=== PATIENT | male | born 1955 | race Caucasian/White ===

== ENCOUNTER → 2022-10-29 08:54 | Outpatient (CLI) | payer OTHER, SELFPAY ==
--- NOTE | ~2022-10-29 | MR_ITS ---
MRI of the lumbar spine Clinical History: Radiculopathy Technique: Axial T2-weighted images, and sagittal T1-weighted, T2-weighted, and T2 fat-sat images wer e acquired. Findings: There is no fracture or subluxation of lumbar spine. Vertebral bodies maintain normal heigh t and alignment. No bone marrow signal abnormality seen. At L1-L2, there is central disc extrusion, which in conjunction with moderate facet arthropathy, resu lts in minimal central canal stenosis. There is moderate bilateral neural foraminal narrowing. At L2-L3, there is diffuse disc bulge with moderate facet arthropathy. There is minimal central canal stenosis. There is moderate bilateral neural foraminal narrowing. At L3-L4, there is diffuse disc bulge with advanced facet arthropathy, resulting in severe spinal can al stenosis/thecal sac compression. There is severe left neural foraminal narrowing and moderate righ t neural foraminal narrowing. At L4-L5, there is diffuse disc bulge with facet arthropathy, which result in severe spinal canal jeovanny nosis/thecal sac compression. There is moderate to advanced bilateral neural foraminal narrowing. At L5-S1, disc bulge and facet arthropathy are present. No sangeetha central canal stenosis. There is sev ere right neural foraminal narrowing and moderate to advanced left neural foraminal narrowing. Paravertebral soft tissues are unremarkable. Impression: Advanced degenerative spondylosis, as detailed above. There is severe spinal canal stenosis/thecal sa c compression L3-L4 and L4-L5, with multilevel neural foraminal narrowing. Reviewed, dictated and finalized at [facility]. Impression: Advanced degenerative spondylosis, as detailed above. There is severe spinal ca nal stenosis/thecal sac compression L3-L4 and L4-L5, with multilevel neural for aminal narrowing.
== END ==
PROVIDERS: PCP Physical Medicine & Rehabilitation Pain Medicine; Visit Provider Physical Medicine & Rehabilitation Pain Medicine
DX: M47.26 Other spondylosis with radiculopathy, lumbar region (principal)
CPT/HCPCS: 72148

== ENCOUNTER 2024-07-25 14:43 | Outpatient (CLI) | payer MEDICARE, OTHER, SELFPAY | END 2024-07-25 14:44 | disposition home or self-care (01) | PROVIDERS: PCP Physician Assistant Medical; Visit Provider Physician Assistant Medical | DX: G62.9 Polyneuropathy, unspecified (principal); R26.9 Unspecified abnormalities of gait and mobility; M47.896 Other spondylosis, lumbar region | CPT/HCPCS: 72148 ==

== ENCOUNTER 2024-08-09 09:58 | Outpatient (CLI) | payer MEDICARE, OTHER, SELFPAY ==
--- NOTE | 2024-08-09 11:00 | NEURO_ITS ---
Impression: # Complains of pain in legs. Known diabetic with history of scoliosis. ? # Neuropathy of axonal type, left more than right. ? # Needle/EMG exam with neurogenic changes. ? # Clinical correlation recommended. Nerve Conduction Studies Anti Sensory Summary Table ?Stim Site NR Peak (ms) P-T Amp (?V) Site1 Site2 Delta-P (ms) Dist (cm) Vinay (m/s) Left Sup Fibular Anti Sensory (Ant Lat Mall)??? NO RESPONSE 14 cm NR 14 cm Ant Lat Mall 16.0 Right Sup Fibular Anti Sensory (Ant Lat Mall) 14 cm ? 3.8 18.6 14 cm Ant Lat Mall 3.8 16.0 42 Left Sural Anti Sensory (Lat Mall)??? NO RESPONSE Calf NR Calf Lat Mall 16.0 Right Sural Anti Sensory (Lat Mall) Calf ? 3.4 2.0 Calf Lat Mall 3.4 16.0 47 Motor Summary Table ?Stim Site NR Onset (ms) O-P Amp (mV) Site1 Site2 Delta-0 (ms) Dist (cm) Vinay (m/s) Left Peroneal Motor (Vastus Med)??? NO RESPONSE Ankle NR Popit Ankle 0.0 Popit NR Right Peroneal Motor (Vastus Med) Ankle ? 5.1 0.7 Popit Ankle 10.9 40.0 37 Popit ? 16.0 0.4 Left Tibial Motor (Abd Wu Brev) Ankle ? 5.0 0.1 Knee Ankle 13.4 44.0 33 Knee ? 18.4 0.6 Right Tibial Motor (Abd Wu Brev) Ankle ? 5.1 1.6 Knee Ankle 13.3 41.0 31 Knee ? 18.4 1.1 F Wave Studies ?NR F-Lat (ms) L-R F-Lat (ms) Left Peroneal (Mrkrs) (EDB)??? NO RESPONSE NR Right Peroneal (Mrkrs) (EDB) ? 59.06 Left Tibial (Mrkrs) (Abd Hallucis) ? 68.18 4.80 Right Tibial (Mrkrs) (Abd Hallucis) ? 63.39 4.80 EMG ?Side Muscle Nerve Root Ins Act Fibs Amp Dur Recrt Comment Right AntTibialis Dp Br Fibular L4-5 Nml Nml Nml Nml +1 Right Gastroc Tibial S1-2 Nml Nml Nml Nml +1 Right Fibularis Long Sup Br Fibular L5-S1 Nml Nml Nml Nml +1 Right Flex Dig Long Tibial L5-S2 Nml Nml Nml Nml +1 Right Ext Dig Brev Dp Br Fibular L5, S1 Nml Nml Nml Nml +1 Right QuadratusFem QuadFemoris L4-5, S1 Nml Nml Nml Nml +1 Left AntTibialis Dp Br Fibular L4-5 Nml Nml Nml Nml +1 Left Gastroc Tibial S1-2 Nml Nml Nml Nml +1 Left Fibularis Long Sup Br Fibular L5-S1 Nml Nml Nml Nml +1 Left Flex Dig Long Tibial L5-S2 Nml Nml Nml Nml +1 Left Ext Dig Brev Dp Br Fibular L5, S1 Nml Nml Nml Nml +1 Left QuadratusFem QuadFemoris L4-5, S1 Nml Nml Nml Nml +1 ? MTDD
--- OUTSIDE RECORDS SUMMARY | 2024-08-09 11:15 | XMS_ITS | Clinical Summary ---
Author Organization [facility] Address [address] [place] [address] Care Team Providers Care Casting Trucker Name Role Phone Lorrie Phillips Unavailable [phone] Lorrie Phillips Primary Care Provider [phone] Allergies Active Allergy Reactions Criticality Noted Date Comments Celecoxib Other (see comment) 01/04/2014 Pt cannot remember side effect. Ezetimibe-Simvastatin Rash Low 02/27/2012 Ibuprofen Rash Low 02/27/2012 Medications rosuvastatin 10 MG tablet Take 10 mg by mouth. Active glimepiride 2 MG tablet Take 2 mg by mouth. Active Dapagliflozin Propanediol 5 MG Tab Take 5 mg by mouth daily. Active metFORMIN 1000 MG tablet Take 1,000 mg by mouth. 1000 in am 500 with lunch 1000 with supper Active magnesium oxide 400 (241.3 Mg) MG tablet Take 400 mg by mouth 2 (two) times daily. Active omeprazole (PRILOSEC) 20 MG capsule Take 1 capsule (20 mg total) by mouth daily. 30 capsule 04/03/2024 Active Family History Medical History Relation Comments Cancer Father Heart Disease Father ALS Mother Relation Status Comments Father Mother Social History Tobacco Use Types Packs/Day Years Used Date Smoking Tobacco: Never Smokeless Tobacco: Former Alcohol Use Standard Drinks/Week Comments Never 0 (1 standard drink = 0.6 oz pur e alcohol) AUDIT-C Answer Date Recorded Frequency of Alcohol Consumption Never 07/01/2019 Average Number of Drinks Not on file 020 Frequency of Binge Drinking Not on file 12/2019 Sex and Gender Information Value Date Recorded Sex Assigned at Not on file Legal Sex Male 10:44 PM CDT Gender Identity Not on file Sexual Orientation Not on file Last Filed Vital Signs Vital Sign Reading Time Taken Comments Blood Pressure 138/70 04/03/2024 11:15 AM DISTRICT ADMINISTRATIVE ASSISTANT Pulse 77 04/03/2024 11:15 AM DISTRICT ADMINISTRATIVE ASSISTANT Temperature 36.2 C (97.2 F) 04/03/2024 11:15 AM DISTRICT ADMINISTRATIVE ASSISTANT Respiratory Rate 18 04/03/2024 11:15 AM DISTRICT ADMINISTRATIVE ASSISTANT Oxygen Saturation 95% 04/03/2024 11:15 AM DISTRICT ADMINISTRATIVE ASSISTANT Inhaled Oxygen Concentration - - Weight 96.2 kg (212 lb 1.3 oz) 04/03/2024 8:20 A M DISTRICT ADMINISTRATIVE ASSISTANT Height 188 cm (6' 2 ) 04/03/2024 8:20 AM DISTRICT ADMINISTRATIVE ASSISTANT Body Mass Index 27.23 04/03/2024 8:20 AM DISTRICT ADMINISTRATIVE ASSISTANT Plan of Treatment Health Maintenance Due Date Last Done Comments Colorectal Cancer Screening Colonoscopy (10 Years) 1956 Hepatitis C 1974 DTaP, Tdap and Td Vaccines ( 1 - Tdap) 1975 Annual Medicare Wellness Visit 2021 Pneumococcal Vaccine: 65+ Years (1 of 1 - PCV) 2021 COVID-19 Vaccine (3 - 2023-2 5 season) 2024 01/17/2021, 12/20/2020 Influenza Adult (#1) 2024 03/20/2016 PHQ-2 (Physician [place]) 05/24/2024 RSV Immunization or 60+ Years (1 - 1-dose 75+ series) 2031 Zoster Vaccines Completed 01/15/2018, 09/23/2017 Meningococcal B Vaccine Aged Out No l onger eligible based on patient's age to complete this topic Meningococcal Vaccine Aged Out No lloyd ida eligible based on patient's age to complete this topic RSV Immunizations Under 20 Months Aged Out No longer eligible b ased on patient's age to complete this topic Insurance MEDICARE [employer] Care Teams Casting Trucker Relationship Specialty Start Date End Date Lorrie Phillips FNP [address] [place] [id number] PCP - General Nurse Practitioner Family 12/02/23 Lorrie Phillips FNP [address] [place] [phone] Nurse Practitioner Family 10/15/23
--- OUTSIDE RECORDS SUMMARY | 2024-08-09 11:15 | XMS_ITS | Encounter Summary ---
Author Organization [facility] Address [address] [place] [address] Care Team Providers Care Resolution Rep Name Role Phone Kayode Andrade MD Primary Care Provider [phone] Lorrie Phillips Unavailable [phone] Lorrie Phillips Primary Care Provider [phone] Encounter Details Date Type Department Care Team (Late st Contact Info) Description 02/05/2015 Abstract [facility] CONVERSION [address] [place] [address] , Generic Conversion, Social History Tobacco Use Types Packs/Day Years Used Date Smoking Tobacco: Never Assessed Sex and Gender Information Value Date Recorded Sex Assigned at Not on file Legal Sex Male 10:44 PM CDT Gender Identity Not on file Sexual Orientation Not on file documented as of this encounter Plan of Treatment Not on file documented as of this encounter Visit Diagnoses Not on filedocumented in this encounter Additional Health Concerns Infection Onset Date Last Indicated Resolved Time COVID-19 Rule Out 05/28/2021 05/28/2021 05/28/2021 5:02 PM BSA/AML COMPLIANCE OFFICER COVID-19 Rule Out 06/18/2021 06/18/2021 06/18/2021 3:24 PM BSA/AML COMPLIANCE OFFICER COVID-19 Rule Out 10/21/2021 10/21/2021 10/21/2021 7:51 AM CDT documented as of this encounter Care Teams Resolution Rep Relationship Specialty Start Date End Date Kayode Andrade MD [address] [place] [phone] PCP - General INTERNAL MEDICINE 07/01/19 12/01/23 Lorrie Phillips FNP [address] [place] [phone] PCP - General Nurse Practitioner Family 12/02/23 Lorrie Phillips FNP [address] [place] [phone] Nurse Practitioner Family 10/15/23 documented as of this encounter
--- OUTSIDE RECORDS SUMMARY | 2024-08-09 11:15 | XMS_ITS | Clinical Summary ---
Author Organization [facility] Address [address] [place] [address] Phone Care Team Providers Care Trailer Mechanic Name Role Phone Kayode Andrade MD Primary Care Provider [phone] Allergies Active Allergy Reactions Criticality Noted Date Comments Celecoxib Other (See Comments) 01/04/2014 Pt cannot remember side effect. Ezetimibe-Simvastatin Rash Low 02/27/2012 Ibuprofen Rash Low 02/27/2012 Medications glimepiride (AMARYL) 2 mg Oral tablet Take 2 mg by mouth daily with breakfast. Active metFORMIN (GLUCOPHAGE) 1,000 mg Oral tabletIndicati ons:1000mg in AM, 500mg at NOON, 1000mg in PM Take 1,000 mg by mouth see administration instructions . Active rosuvastatin (CRESTOR) 10 mg Oral tablet Take 20 mg by mouth daily at bedtime. Active dapagliflozin (FARXIGA) 5 mg Tablet Take 10 mg by mouth daily. Active liraglutide (VICTOZA 2-YANG) 0.6 mg/0.1 mL (18 mg/3 mL) Inject 1.2 mg by subcutaneous injection daily. Active [place]-3 Fatty Acids (FISH OIL) 300 mg Capsule Take by mouth. Activ e levothyroxine 25 mcg tablet Take 25 mcg by mouth daily in the morning. Active Cholecalcifero l, Vitamin D3, 50 mcg (2,000 unit) Capsule Take 50 mcg by mouth daily. Active ascorbic acid (VITAMIN C) 250 mg Tablet, Chewable Take 250 mg by mouth daily. Active Active Problems Problem Noted Date Diagnosed Date Type 2 diabetes mellitus wit hout complication, without long-term current use of insulin 07/13/2023 Lightheadedness 07/13/2023 Chest tightness 07/13/2023 Hypothyroidism 07/13/2023 Hyperlipidemia 07/13/2023 Hydronephrosis with urinary obstruction due to ureteral calculus 09/29/2016 Urgency of urination 07/21/2016 Left ureteral stone 07/06/2016 Type II or unspecified type diabetes mellitus without mention of complication, uncontrolled 01/04/2014 HTN (hypertension) 01/04/2014 Tachycardia 01/04/2014 Osteoarthritis of hip 01/03/2014 Abdominal pain, right lower quadrant 02/27/2012 Acute appendicitis without mention of peritoniti s 02/27/2012 Encounters Date Type Department Care Team Description 07/04/2024 External Device Data [facility] ABSTRACTION Provider, Abstract 06/27/2024 External Device Data [facility] ABSTRACTION Provider, Abstract 06/27/2024 External Device Data [facility] ABSTRACTION Provider, Abstract 06/27/2024 External Device Data [facility] ABSTRACTION Provider, Abstract 06/15/2024 External Device Data [facility] ABSTRACTION Provider, Abstract from Last 3 Months Immunizations Immunization Administration Dates Next Due Influenza Seasonal Unspecified Formulation IM Family History Medical History Relation Name Comments Heart Disease Father Diabetes Maternal Grandmother Heart Disease Other Relation Name Status Comments Father Maternal Grandmother Other Social History Tobacco Use Types Packs/Day Years Used Date Smoking Tobacco: Never Smokeless Tobacco: Never Alcohol Use Standard Drinks/Week Comments Yes 0 (1 standard drink = 0.6 oz pur e alcohol) rarely Feeling Safe Answer Date Recorded Are you in a relationship wi th someone who hurts you emotionally and/or physically? No 07/12/2023 Food Insecurity Answer Date Recorded Social/Environmental Concerns No concerns Transportation Needs Answer Date Record ed Social/Environmental Concerns No concerns Housing Stability Answer Date Recorded Social/Environmental Concerns No concerns Utility Needs Answer Date Recorded Social/Environmental Concerns No concerns Sex and Gender Information Value Date Recorded Sex Assigned at Not on file Legal Sex Male 6:11 AM SWEEP PRESS OPERATOR Gender Identity Not on file Sexual Orientation Not on file Occupation Industry Job Start Date Job End Date Not on file Not on file Not on file Not on file Last Filed Vital Signs Vital Sign Reading Time Taken Comments Blood Pressure 147/79 07/14/2023 8:10 AM SWEEP PRESS OPERATOR Pulse 82 07/14/2023 8:10 AM SWEEP PRESS OPERATOR Temperature 36.6 C (97.8 F) 07/14/2023 8:10 AM SWEEP PRESS OPERATOR Respiratory Rate 16 07/14/2023 8:10 AM SWEEP PRESS OPERATOR Oxygen Saturation 93% 07/14/2023 8:10 AM SWEEP PRESS OPERATOR Inhaled Oxygen Concentration - - Weight 9.798 kg (21 lb 9.6 oz) 07/14/2023 4:54 A M SWEEP PRESS OPERATOR Height 188 cm (6' 2 ) 07/12/2023 10:22 PM SWEEP PRESS OPERATOR Body Mass Index 2.77 07/12/2023 10:22 PM SWEEP PRESS OPERATOR Plan of Treatment Health Maintenance Due Date Last Done Comments DIABETES ANNUAL FOOT EXAM 1974 DIABETES ANNUAL RETINAL EXAM 1974 DIABETES MICROALBUMIN ANNUAL SCREEN 1974 LDL CHOLESTEROL ANNUAL 1974 DTAP/TDAP/TD VACCINES (1 - Tdap) 1975 PNEUMOCOCCAL VACCINE 50+ YEA RS (1 of 2 - PCV) 1975 02/16/2016 COLORECTAL SCREENING 2001 Colorectal Cancer Screening 2001 FIT-DNA Q 3 years 2001 FIT/FOBT Q 1 year 2001 Flex Sig/CT Colonography Q 5 years 2001 RSV VACCINE (60+ or ) (1 - Risk 60-74 years 1-dose series) 2016 DIABETES HBA1C Q 6 MONTHS 09/05/2019 03/06/2019 INFLUENZA VACCINE (#1) 2023 03/20/2016 ZOSTER VACCINE Completed 01/15/2018, 09/23/2017 Medical Devices Implanted Type Area Supervisor Grinding Device Identifier Shelf Expiration Date Model / Serial / Lot Stem Fem Integral Por Std [id number] - [id number] Implanted:Qty : 1 on 01/04/2014 by Shahram Cabrera MD at [facility] Hip Right: Hip [employer] 10/22/2023 [id number] / / [id number] Head Fem Biolox Option 36mm [id number] - [id number] Implanted:Qty : 1 on 01/04/2014 by Shahram Cabrera MD at [facility] Hip Right: Hip [employer] 10/22/2023 [id number] / / [id number] Slv Biolox Delta Optn Type 1 [id number] - [id number] Implanted:Qty : 1 on 01/04/2014 by Sharham Cabrera MD at [facility] Hip Right: Hip [employer] 12/22/2023 [id number] / / [id number] Stent Polaris Ultra [id number] - [id number] Implanted:Qty : 1 on 09/17/2016 by Say Wyman MD at [facility] Stent Left: Ureter [employer] [id number] 07/21/2019 [id number] / / [id number] Hip Mesh G7 Acetabular Shell 3 Hole 58mm Shell Size, G Liner Size [id number] Implanted:Qty : 1 on 01/04/2014 by Shahram Cabrera MD at [facility] Right: Hip [employer] 09/21/2023 [id number] / / [id number] Description:POROUS PLASMA, C EMENTLESS PROCESSED ON REQUISITION,[id number]. G7 Acetabular Liner Hi-Wall 36mm Head Size, G Liner Size [id number] Implanted:Qty : 1 on 01/04/2014 by Shahram Cabrera MD at [facility] Right: Hip [employer] 11/20/2017 [id number] / / [id number] Explanted Type Area Supervisor Grinding Device Identifier Shelf Expiration Date Model / Serial / Lot Stent Contour [id number] - [id number] Implanted:Qty: 1 on 08/20/2016 by Say Wyman MD at [facility] Explanted:Qty: 1 on 09/17/2016 by Say Wyman MD at [facility] Stent Left: Ureter [employer]RICAL INST[employer] [id number] 03/31/2019 [id number] / / [id number] Description:Pt has two left ureters, this historical implant was explanted, out of left ureter #1, and a new stent was placed in left ureter #2. Insurance O OPEN ACCESS MEDICARE PART A [facility]OSPITAL ONLY Advance Directives For more information, please contact: [phone] * Full Code (Latest Code Status on File) Date Activated Date Inactivated Comments 07/13/2023 8:33 AM 07/14/2023 5:15 PM * Full Code Date Activated Date Inactivated Comments 09/17/2016 5:24 AM 09/17/2016 1:23 PM * Full Code Date Activated Date Inactivated Comments 08/20/2016 1:39 PM 08/20/2016 8:11 PM * Full Code Date Activated Date Inactivated Comments 01/04/2014 2:28 PM 01/08/2014 3:00 PM * Full Code Date Activated Date Inactivated Comments 01/04/2014 8:19 AM 01/04/2014 2:28 PM Care Teams Trailer Mechanic Relationship Specialty Start Date End Date Kayode Andrade MD [address] [place] [phone] PCP - General Internal Medicine 02/27/12
--- OUTSIDE RECORDS SUMMARY | 2024-08-09 11:15 | XMS_ITS | Referral Summary ---
Author Organization [facility] [place] Care Team Providers Care Administrative Resident Name Role Phone Rafael JENNINGS MD, Jeromy Guido Unavailable [phone] Sunday Juan MD Primary Care Provider [phone] Cheyanne Osuna MD Unavailable [phone] Encounters Date Type Department Care Team Description 06/06/2024 11:00 AM COLLECTION MANAGER Office Visit [facility] Otolaryngology [address], [address] [place] [address] Jeromy Hall II, MD Bilateral impacted cerumen (Primary Dx); Sensorineural hearing loss (SNHL) of both ears; Malignant neoplasm of tonsil (HCC) 05/30/2024 Orders Only [facility] Medical Office Building 2 Radiation Oncology [facility] [place] [address] Montserrat Meneses PA Other specified hypothyroidism from Last 3 Months Allergies Active Allergy Reactions Criticality Noted Date Comments Celecoxib Rash Medium 01/04/2014 Pt cannot remember side effect. Ezetimibe Ibuprofen Diarrhea,Stomach upset,Rash Medium 02/27/2012 Simvastatin Sulfanilamide Medications metFORMIN (GLUCOPHAGE) 500 mg tablet 01/23/20 18 Active glimepiride (AMARYL) 2 mg tabletIndications: type 2 diabetes mellitus 1 in the am, 2 in the pm 12/30/19 18 Active rosuvastatin (CRESTOR) 10 mg tablet Take 1 tablet (10 mg total) by mouth daily Active dapagliflozin (FARXIGA) 5 mg tabletIndications: type 2 diabetes mellitus 1 tablet (5 mg total) daily Active ONETOUCH ULTRA BLUE TEST STRIP strip 02/29/20 18 Active magnesium oxide 400 mg magnesium capsule Take 400 mg by mouth 3 (three) times a day 90 each 3 02/11/20 19 Active BD ULTRA-FINE SHORT PEN NEEDLE 31 gauge x 5/16 needle daily 1 02/03/20 19 Active aspirin 81 mg enteric coated tablet Take 1 tablet (81 mg total) by mouth daily 30 tablet 11 02/28/20 20 Active coenzyme Q10 200 mg capsule Take 1 capsule (200 mg total) by mouth daily Active Farxiga 10 mg tablet Take 1 tablet (10 mg total) by mouth daily 03/05/20 23 Active metFORMIN XR (GLUCOPHAGE XR) 500 mg 24 hr tablet TAKE 2 TABLETS BY MOUTH IN THE MORNING AND 1 AT NOON AND 2 IN THE EVENING 03/21/20 23 Active rosuvastatin (CRESTOR) 20 mg tablet Take 1 tablet (20 mg total) by mouth daily 03/05/20 23 Active clotrimazole (LOTRIMIN) 1 % external solution Use 4-5 drops left ear tid for 3 weeks 30 mL 3 02/08/20 24 Active levothyroxine (SYNTHROID) 25 mcg tabletIndications: Other specified hypothyroidism Take 1 tablet (25 mcg total) by mouth community leader before breakfast 90 tablet 3 05/30/19 25 Active Ozempic 0.25 mg or 0.5 mg (2 mg/3 mL) pen injector injection INJECT 0.5 MG SUBCUTANEOUSLY ONCE A WEEK 04/17/20 24 Active Active Problems Problem Noted Date Diagnosed Date Otomycosis of left ear 02/08/2024 Malignant neoplasm of base of tongue 11/30/2023 Pharyngoesophageal dysphagia 11/30/2023 Hoarseness 12/01/2022 Personal history of radiation therapy 02/19/2021 Chronic otitis externa 08/06/2020 Impacted cerumen of right ear 08/06/2020 Bilateral impacted cerumen 05/14/2020 Xerostomia due to radiotherapy 04/02/2020 Otitis externa 12/26/2019 Sensorineural hearing loss (SNHL) of both ears 0 11/16/2019 Dysgeusia 11/16/2019 Status post total hip replacement, right 019 Orthostatic hypotension 03/07/2018 Dehydration 03/07/2018 Malignant neoplasm of tonsil 02/11/2018 Cancer Staging:Clinical stage from 02/15/2018:Stage I(cT2, cN1, cM0, p16+) - Signed by Jacob Edward MD on 02/15/2018 Hydronephrosis with urinary obstruction due to ureteral calculus 09/29/2016 Osteoarthritis of hip 01/03/2014 Hypertension 10/07/2013 Overview (08/26/2016): HYPERTENSION NOS Type II or unspecified type diabetes mellitus without mention of complication, uncontrolled 10/07/2013 Overview (02/15/2018): DMII WO CMP UNCNTRLD Pure hypercholesterolemia 10/07/2013 Overview (08/28/2016): PURE HYPERCHOLESTEROLEM Immunizations Immunization Administration Dates Next Due Pneumococcal Conjugate, Unspecified 02/16/2016 ZOSTER Recombinant 01/15/2018,09/23/2017 Social History Tobacco Use Types Packs/Day Years Used Date Smoking Tobacco: Never Smokeless Tobacco: Former Chew Quit: 1987 Tobacco Cessation:Counseling Given: Not Answered Alcohol Use Standard Drinks/Week Comments Yes 0 (1 standard drink = 0.6 oz pur e alcohol) once a month Sex and Gender Information Value Date Recorded Sex Assigned at Not on file Legal Sex Male 12:35 AM COLLECTION MANAGER Gender Identity Not on file Sexual Orientation Not on file Last Filed Vital Signs Vital Sign Reading Time Taken Comments Blood Pressure 167/86 04/18/2024 8:53 AM COLLECTION MANAGER Pulse 108 04/18/2024 8:53 AM COLLECTION MANAGER Temperature 36.8 C (98.2 F) 02/08/2024 11:31 AM CDT Respiratory Rate 18 12/01/2022 11:46 AM CDT Oxygen Saturation 95% 04/18/2024 8:53 AM COLLECTION MANAGER Inhaled Oxygen Concentration - - Weight 94.3 kg (208 lb) 06/06/2024 4:16 PM COLLECTION MANAGER Height 188 cm (6' 2 ) 06/06/2024 4:16 PM COLLECTION MANAGER Body Mass Index 26.71 06/06/2024 4:16 PM COLLECTION MANAGER Plan of Treatment Not on file Medical Devices Explanted Type Area Cyber Defense Analyst Device Identifier Shelf Expiration Date Model / Serial / Lot Port Chest Wall Procedures Procedure Name Priority Date/Time Associated Diagnosis Comments CT CHEST ABDOMEN PELVIS W CONTRAST Schedule Routine, Read Routine (OP Routine) 10/22/2021 8:00 AM CDT Swollen lymph nodes Malignant neoplasm of tonsil (HCC) HEMOGLOBIN A1C Routine 03/06/2019 7:24 AM CDT COMPREHENSIVE METABOLIC PANEL Routine 02/15/2019 2:52 PM CDT Head and neck cancer (HCC) from Last 3 Months or Most Recently Relevant to Health Maintenance Results * CT Chest Abdomen Pelvis W Contrast (10/22/2021 8:00 AM CDT) Anatomical Region Laterality Modality Body N/A Computed Tomogra phy 10/23/2021 3:34 PM CDT Narrative 10/23/2021 3:44 PM CDT EXAM DESCRIPTION: CT CHEST ABDOMEN PELVIS W CONTRAST REASON FOR STUDY: History of tonsillar cancer for metastatic workup TECHNIQUE: CT scan of the chest, abdomen, and pelvis performed with intravenous and without oral contrast using helical scanning technique with dynamic intravenous contrast injection. Reconstructed coronal and sagittal MPR images reviewed. All images stored on PACS. Automated exposure control was used as a dose optimization technique for this examination. CONTRAST TYPE/DOSE: 100mL of IOVERSOL 350 MG IODINE/ML INTRAVENOUS SYRINGE injected via intravenous COMPARISON: PET scan dated July 20, 2018 FINDINGS: CHEST LUNGS: No nodules or masses. No pneumonia. Scattered calcified granulomas are seen. PLEURA: No effusion. No pneumothorax. MEDIASTINUM/JUAN JOSE: No identified masses or abnormal nodes. HEART: Heart size is normal with no pericardial effusion. VASCULATURE CHEST: No thoracic aortic aneurysm or dissection. AXILLA: No adenopathy. CHEST WALL: No masses. No subcutaneous air. HARDWARE/LINES/TUBES: None. MUSCULOSKELETAL CHEST: No significant abnormality. ABDOMEN/PELVIS LIVER: Normal size. No identified cystic or solid masses. Subcentimeter hypodensity hepatic segment VII is too small to adequately characterize. GALLBLADDER: No stones identified. No wall thickening or inflammatory changes. BILE DUCTS: No intrahepatic or extrahepatic ductal dilatation. SPLEEN: Normal size. No focal lesions. PANCREAS: No identified cystic or solid masses. No significant calcifications. No adjacent inflammation or peripancreatic fluid collections. Pancreatic duct not dilated. ADRENALS: Normal. KIDNEYS/URINARY TRACT: No identified significant cystic or solid masses. Scattered areas of cortical scarring of the left kidney is seen. Bilateral cysts are seen present. 0.3 cm nonobstructing stone right kidney lower pole (axial image 132). No hydronephrosis or hydroureter. Symmetric enhancement. Urinary bladder is unremarkable. GI: No dilated bowel loops. No obvious wall thickening. Surgically absent appendix. No significant diverticular disease. PERITONEUM: No ascites or free air. RETROPERITONEUM: No mass or adenopathy. REPRODUCTIVE: No significant abnormality. VASCULATURE ABDOMEN: No abdominal aortic aneurysm. MUSCULOSKELETAL ABDOMEN PELVIS: Mild spondylosis of the lower lumbar spine. Right hip arthroplasty in place. Left hip mild osteoarthritis. OTHER: No significant abnormality. IMPRESSION: No evidence of metastatic disease to the chest, abdomen or pelvis. THIS IS AN ELECTRONICALLY VERIFIED FINAL REPORT 10/23/2021 3:44 PM - Electronically signed by Kelvin Reis M.D. JA: DANIEL Report ID: [id number] Reading Location: [id number] Procedure Note Kelvin Reis MD - 10/23/2021 EXAM DESCRIPTION: CT CHEST ABDOMEN PELVIS W CONTRAST REASON FOR STUDY: History of tonsillar cancer for metastatic workup TECHNIQUE: CT scan of the chest, abdomen, and pelvis performed with intravenous and without oral contrast using helical scanning techniquewith dynamic intravenous contrast injection. Reconstructed coronal and sagittalMPR images reviewed. All images stored on PACS. Automated exposure control was used as a dose optimization technique forthis examination. CONTRAST TYPE/DOSE: 100mL of IOVERSOL 350 MG IODINE/ML INTRAVENOUSSYRINGE injected via intravenous COMPARISON: PET scan dated July 20, 2018 FINDINGS: CHEST LUNGS: No nodules or masses. No pneumonia. Scattered calcifiedgranulomas are seen. PLEURA: No effusion. No pneumothorax. MEDIASTINUM/JUAN JOSE: No identified masses or abnormal nodes. HEART: Heart size is normal with no pericardial effusion. VASCULATURE CHEST: No thoracic aortic aneurysm or dissection. AXILLA: No adenopathy. CHEST WALL: No masses. No subcutaneous air. HARDWARE/LINES/TUBES: None. MUSCULOSKELETAL CHEST: No significant abnormality. ABDOMEN/PELVIS LIVER: Normal size. No identified cystic or solid masses.Subcentimeter hypodensity hepatic segment VII is too small to adequately characterize. GALLBLADDER: No stones identified. No wall thickening or inflammatory changes. BILE DUCTS: No intrahepatic or extrahepatic ductal dilatation. SPLEEN: Normal size. No focal lesions. PANCREAS: No identified cystic or solid masses. No significant calcifications. No adjacent inflammation or peripancreatic fluidcollections. Pancreatic duct not dilated. ADRENALS: Normal. KIDNEYS/URINARY TRACT: No identified significant cystic or solid masses. Scattered areas of cortical scarring of the left kidney is seen.Bilateral cysts are seen present. 0.3 cm nonobstructing stone right kidney lowerpole (axial image 132). No hydronephrosis or hydroureter. Symmetricenhancement. Urinary bladder is unremarkable. GI: No dilated bowel loops. No obvious wall thickening. Surgicallyabsent appendix. No significant diverticular disease. PERITONEUM: No ascites or free air. RETROPERITONEUM: No mass or adenopathy. REPRODUCTIVE: No significant abnormality. VASCULATURE ABDOMEN: No abdominal aortic aneurysm. MUSCULOSKELETAL ABDOMEN PELVIS: Mild spondylosis of the lower lumbarspine. Right hip arthroplasty in place. Left hip mild osteoarthritis. OTHER: No significant abnormality. IMPRESSION: No evidence of metastatic disease to the chest, abdomen or pelvis. THIS IS AN ELECTRONICALLY VERIFIED FINAL REPORT 10/23/2021 3:44 PM - Electronically signed by Kelvin Reis M.D. JA: DANIEL Report ID: [id number] Reading Location: [place] [address] [place] [address] LARA IMG CT PROCEDURES Final Res ult * (ABNORMAL) Hemoglobin A1c (03/06/2019 7:24 AM CDT) Hemoglobin A1c % 6.9(H) 4.0 - 5.6 % [facility] Comment: ADA 2016 GUIDELINES: Initial Diagnostic Criteria HbA1c Result: Interpretation: <5.7% Normal 5.7-6.4% At risk for diabetes mellitus >=6.5% Consistent with diabetes mellitus Diabetes monitoring Target value (ADA Recommended) <7% 03/06/2019 7:24 AM CDT 03/06/2019 10:38 AM CDT Narrative Resulting Agency Comment CLI us Marcos Marquez DO LAB BLOOD ORDERABLES Final Re sult [address] [address], [facility] [phone] * (ABNORMAL) Comprehensive metabolic panel (02/15/2019 2:52 PM CDT) Glucose 102(H) 65 - 99 mg/dL [facility] - 01 BUN 24 8 - 27 mg/dL [facility] - 01 Creatinine, Serum 1.40(H) 0.76 - 1.27 mg/dL [facility] - 01 eGFR If NonAfricn Am 53(L) >59 mL/min/1.7 3 [facility] - 01 eGFR If Africn Am 62 >59 mL/min/1.7 3 [facility] - 01 BUN/creat ratio 17 10 - 24 [facility] - 01 Sodium 142 134 - 144 mmol/L [facility] - 01 Potassium, sr 4.8 3.5 - 5.2 mmol/L [facility] - 01 Chloride 101 96 - 106 mmol/L [facility] - 01 CO2 23 20 - 29 mmol/L [facility] - 01 Calcium 10.1 8.6 - 10.2 mg/dL [facility] - 01 Protein, sr 7.2 6.0 - 8.5 g/dL [facility] - 01 Albumin 4.5 3.6 - 4.8 g/dL [facility] - 01 Globulin, Total 2.7 1.5 - 4.5 g/dL [facility] - 01 A/G Ratio 1.7 1.2 - 2.2 [facility] - 01 Bilirubin, Total 0.6 0.0 - 1.2 mg/dL [facility] - 01 Alk phos 66 39 - 117 IU/L [facility] - 01 AST 20 0 - 40 IU/L [facility] - 01 ALT 19 0 - 44 IU/L [facility] - 01 Blood specimen (specimen) 02/15/2019 2:52 PM CDT 02/15/2019 Narrative [facility] - 02/16/2019 8:07 PM CDT Performed at: - [facility] [address] [id number] Grounding Engineer: Brian Chavez PhD, Phone: [phone] us Jacob Edward MD LAB BLOOD ORDERABLES Fi nal Result [facility] - 01 from Last 3 Months or Most Recently Relevant to Health Maintenance Insurance [employer] [facility] [id number] [facility] [id number] Care Teams Administrative Resident Relationship Specialty Start Date End Date Sunday Juan MD [address] [place] [address] PCP - General Family Medicine 06/04/22 Jeromy Hall II, MD [address] [place] [address] Surgeon Otolaryngology 02/19/21 Cheyanne Osuna MD [address] [place] [address] Radiation Oncologist Radiation Oncology 01/18/24
--- OUTSIDE RECORDS SUMMARY | 2024-08-09 11:15 | XMS_ITS ---
Author Organization [facility] [place] Care Team Providers Care Office Inspector Name Role Phone Rafael JENNINGS MD, Jeromy Guido Unavailable [phone] Sunday Juan MD Primary Care Provider [phone] Cheyanne Osuna MD Unavailable [phone] Active Problems Problem Noted Date Diagnosed Date [...] Pure hypercholesterolemia 10/07/2013 Overview (08/28/2016): PURE HYPERCHOLESTEROLEM Current Treatment and Therapy Plans No current plan information found. Past Treatment and Therapy Plans Oncology Chemotherapy Treatment Plan Name Start Date Discontinue Date Treatment Medications Discontinue Reason Plan Provider Cycles CARBOplatin weekly with Concurrent Radiation - Head and Neck 05/19/20 18 07/22/2018 CARBOplatin (PARAPLATIN) IVPB in 250 mL Therapy Complete Jacob Edward MD 1 of 1 cycle started DOCEtaxel / CISplatin / Fluorouracil 21 Day Cycles - Head and Neck 8 05/06/2018 CISplatin (PLATINOL)CISp latin (PLATINOL) IVPB in 250 mLDOCEtaxel (TAXOTERE)DOCE taxel (TAXOTERE) IVPB in 250 mL (vial 20mg/mL)fluoro uracil (ADRUCIL)fluor ouracil (ADRUCIL) infusion - for home infusion (ADRUCIL) Therapy Complete Jacob Edward MD 3 of 6 cycles started Oncology Supportive Care Plan Name Start Date Discontinue Date Treatment Medications Discontinue Reason Plan Provider HYDRATION THERAPY PLAN 03/07/2018 09/19/2018 No medications scheduled. Therapy Complete Jacob Edward MD Oncology Treatment (2) Plan Name Start Date Discontinue Date Treatment Medications Discontinue Reason Plan Provider Cycles Albumin-bound PACLItaxel (Abraxane) / CISplatin 21 Day Cycles - Head and Neck 8 02/18/2018 albumin-bound PACLItaxel (ABRAXANE)CISp latin (PLATINOL) Financial Jacob Edward MD Treatment not started Specialty Infusion Treatment Plan Name Start Date Discontinue Date Treatment Medications Discontinue Reason Plan Provider ALTEPLASE (CATHFLOW ACTIVASE) - ORDERS FOR OCCLUDED CATHETERS 05/19/2018 09/19/2018 No medications scheduled. Therapy Complete Jacob Edward MD
--- OUTSIDE RECORDS SUMMARY | 2024-08-09 11:15 | XMS_ITS | Clinical Summary ---
Author Organization [facility] [place] Care Team Providers Care Engagement Mgr Name Role Phone Rafael JENNINGS MD, Jeromy Guido Unavailable [phone] Sunday Juan MD Primary Care Provider [phone] Cheyanne Ousna MD Unavailable [phone] Allergies Active Allergy Reactions Criticality Noted Date [...] 1 tablet (25 mcg total) by mouth line director before breakfast 90 tablet 3 05/30/19 25 [...] Pure hypercholesterolemia 10/07/2013 Overview (08/28/2016): PURE HYPERCHOLESTEROLEM Encounters Date Type Department Care Team Description 06/06/2024 11:00 AM CHILD CARE WORKER Office Visit [facility] Otolaryngology [address], [address] [place] [address] Jeromy Hall II, MD Bilateral impacted cerumen (Primary Dx); Sensorineural hearing loss (SNHL) of both ears; Malignant neoplasm of tonsil (HCC) 05/30/2024 Orders Only [facility] Medical Office Building 2 Radiation Oncology [address] [place] [address] Montserrat Meneses PA Other specified hypothyroidism from Last 3 Months Immunizations Immunization Administration Dates Next Due Pneumococcal Conjugate, Unspecified 02/16/2016 ZOSTER Recombinant 01/15/2018,09/23/2017 Surgical History Surgery Date Site/Laterality Comments HERNIA REPAIR 05/24/2004 - 05/23/2005 Hernia repair ROTATOR CUFF REPAIR Right HIP ARTHROPLASTY Right APPENDECTOMY COLONOSCOPY UPPER GASTROINTESTINAL ENDOSCOPY PORTACATH PLACEMENT TONSILLECTOMY BIOPSY 03/15/2019 Left excision left neck mass, ML 01/19/2018 Medical History Medical History Date Comments Diabetes mellitus (HCC) Diabetes Hypertension Hypertension Hx Other Medical renal stones Hyperlipidemia Hyperlipidemia Kidney stones Tonsil cancer (HCC) Ear problems Family History Medical History Relation Name Comments Cancer Father Colon cancer Father ALS Mother Diabetes type II Other Family hist ory of Diabetes -Type II; Relation Name Status Comments Father (Age 71) 71 when di agnosed Mother (Age 57) 56 when di agnosed Other Social History Tobacco Use Types Packs/Day Years Used Date Smoking Tobacco: Never Smokeless Tobacco: Former Chew Quit: 1988 Tobacco Cessation:Counseling Given: Not Answered Alcohol Use Standard Drinks/Week Comments Yes 0 (1 standard drink = 0.6 oz pur e alcohol) once a month Sex and Gender Information Value Date Recorded Sex Assigned at Not on file Legal Sex Male 12:35 AM CHILD CARE WORKER Gender Identity Not on file Sexual Orientation Not on file Obstetrics History Last Filed Vital Signs Vital Sign Reading Time Taken Comments Blood Pressure 167/86 04/18/2024 8:53 AM CHILD CARE WORKER Pulse 108 04/18/2024 8:53 AM CHILD CARE WORKER Temperature 36.8 C (98.2 F) 02/08/2024 11:31 AM CDT Respiratory Rate 18 12/01/2022 11:46 AM CDT Oxygen Saturation 95% 04/18/2024 8:53 AM CHILD CARE WORKER Inhaled Oxygen Concentration - - Weight 94.3 kg (208 lb) 06/06/2024 4:16 PM CHILD CARE WORKER Height 188 cm (6' 2 ) 06/06/2024 4:16 PM CHILD CARE WORKER Body Mass Index 26.71 06/06/2024 4:16 PM CHILD CARE WORKER Plan of Treatment Health Maintenance Due Date Last Done Comments Albumin Creatinine Ratio, Urine 1956 Colon Cancer Screening-Colonoscopy 1956 Depression Screening 1956 Fall Risk Assessment 1956 Hepatitis C Screening 1956 Prostate Cancer Screening-PSA 1956 Dilated Eye Exam 1956 Foot Exam 1956 Lipid Panel 1956 DTaP/Tdap/Td Vaccine (1 - Tdap) 1967 Hepatitis B Screening 1974 Pneumococcal vaccine 65+ (2 of 2 - PPSV23) 04/12/2016 02/16/2016 Hemoglobin A1C 09/05/2019 03/06/2019 eGFR 02/16/2020 02/15/2019, 10/23, 09/21/2018, Additional history exists Well Visit 65+ 2021 Influenza Vaccine (#1) 2024 Zoster Vaccine Completed 01/15/2018, 09/23/2017 Abdominal Aortic Aneurysm (A AA) Screen Completed 04/03/2024, 10/22/2021, 07/01/2019, Additional history exists Medical Devices Explanted Type Area Technical Consultant Device Identifier Shelf Expiration Date Model / [...] Electronically signed by Kelvin Reis M.D. JA: DNAIEL Report ID: [id number] Reading Location: [id number] Procedure Note Kelvin Reis MD - 10/23/2021 [...] Kelvin Reis M.D. JA: DANIEL Report ID: [id number] Reading Location: [place] [address] [address] LARA IMG CT PROCEDURES Final Res ult * (ABNORMAL) Hemoglobin A1c (03/06/2019 7:24 AM CDT) Hemoglobin A1c % 6.9(H) 4.0 - 5.6 % [facility] Comment: ADA 2016 GUIDELINES: Initial Diagnostic Criteria HbA1c Result: Interpretation: <5.7% Normal 5.7-6.4% At risk for diabetes mellitus >=6.5% Consistent with diabetes mellitus Diabetes monitoring Target value (ADA Recommended) <7% 03/06/2019 7:24 AM CDT 03/06/2019 10:38 AM CDT Narrative Resulting Agency Comment CLI us Marcos Marquez DO LAB BLOOD ORDERABLES Final Re sult [place] [id number] [place], [place] [address] [phone] * (ABNORMAL) Comprehensive metabolic panel (02/15/2019 2:52 PM CDT) Pathologist [facility] Glucose 102(H) 65 - 99 mg/dL [facility] [...] 02/16/2019 8:07 PM CDT Performed at: - [address] [id number] Veneer Sample Maker: Brian Chavez PhD, Phone: [phone] us Jacob Edward MD LAB BLOOD ORDERABLES Fi nal Result [facility] - 01 from Last 3 Months or Most Recently Relevant to Health Maintenance Insurance [employer] [facility] [id number] [facility] [id number] [facility] [id number] Care Teams Engagement Mgr Relationship Specialty Start Date End Date Sunday Juan MD [address] [place] [address] PCP - General Family Medicine 06/04/22 Jeromy Hall II, MD [address] [place] [address] Surgeon Otolaryngology 02/19/21 Cheyanne Osuna MD [address] [place] [address] Radiation Oncologist Radiation Oncology 01/18/24
== END 2024-08-09 09:59 | disposition home or self-care (01) ==
PROVIDERS: PCP Physician Assistant Medical; Visit Provider Physician Assistant Medical
DX: G57.83 Other specified mononeuropathies of bilateral lower limbs (principal); E11.9 Type 2 diabetes mellitus without complications; M41.9 Scoliosis, unspecified
CPT/HCPCS: 95886; 95910

== ENCOUNTER 2024-10-13 01:37 | Day surgery (SDC) | payer MEDICARE, OTHER, SELFPAY ==
[2024-10-05 16:00] VITALS: BMI 27.4
--- OUTSIDE RECORDS SUMMARY | 2024-10-13 01:40 | XMS_ITS | Referral Summary ---
Author Organization [facility] [place] Care Team Providers Care Gate Mortiser Operator Name Role Phone Rafael JENNINGS MD, Jeromy Guido Unavailable [phone] Sunday Juan MD Primary Care Provider [phone] Cheyanne Osuna MD Unavailable [phone] Allergies Active Allergy Reactions Criticality Noted Date [...] 1 tablet (25 mcg total) by mouth boat builder and repairer before breakfast 90 tablet 3 05/30/19 25 [...] on file Legal Sex Male 12:35 AM CONGRESSIONAL DISTRICT AIDE Gender Identity Not on file Sexual Orientation Not on file Last Filed Vital Signs Vital Sign Reading Time Taken Comments Blood Pressure 167/86 04/18/2024 8:53 AM CONGRESSIONAL DISTRICT AIDE Pulse 108 04/18/2024 8:53 AM CONGRESSIONAL DISTRICT AIDE Temperature 36.8 C (98.2 F) 02/08/2024 11:31 AM CDT Respiratory Rate 18 12/01/2022 11:46 AM CDT Oxygen Saturation 95% 04/18/2024 8:53 AM CONGRESSIONAL DISTRICT AIDE Inhaled Oxygen Concentration - - Weight 94.3 kg (208 lb) 06/06/2024 4:16 PM CONGRESSIONAL DISTRICT AIDE Height 188 cm (6' 2 ) 06/06/2024 4:16 PM CONGRESSIONAL DISTRICT AIDE Body Mass Index 26.71 06/06/2024 4:16 PM CONGRESSIONAL DISTRICT AIDE Plan of Treatment Not on file Medical Devices Explanted Type Area Washing Machine Installer Device Identifier Shelf Expiration Date Model / [...] Kelvin Reis M.D. JA: DANIEL Report ID: [id number] Reading Location: [place] [address] Procedure Note Kelvin Reis MD - 10/23/2021 [...] Kelvin Reis M.D. JA: DANIEL Report ID: [id number] Reading Location: [place] [address] PROCEDURES Final Res ult * (ABNORMAL) Hemoglobin A1c (03/06/2019 7:24 AM CDT) Hemoglobin A1c % 6.9(H) 4.0 - 5.6 % [facility] Comment: ADA 2016 GUIDELINES: Initial Diagnostic Criteria HbA1c Result: Interpretation: <5.7% Normal 5.7-6.4% At risk for diabetes mellitus >=6.5% Consistent with diabetes mellitus Diabetes monitoring Target value (ADA Recommended) <7% 03/06/2019 7:24 AM CDT 03/06/2019 10:38 AM CDT Narrative Resulting Agency Comment CLI Marcos Marquez DO LAB BLOOD ORDERABLES Final Re sult [address] [address], [facility] [phone] * (ABNORMAL) Comprehensive metabolic panel (02/15/2019 2:52 [...] 8:07 PM CDT Performed at: - [facility] [address] [id number] Wig Sales Consultant: Brian Chavez PhD, Phone: [phone] us Jacob Edward MD LAB BLOOD ORDERABLES Fi nal Result [facility] - 01 from Last 3 Months or Most Recently Relevant to Health Maintenance Insurance [facility] [id number] [facility] [id number] Care Teams Gate Mortiser Operator Relationship Specialty Start Date End Date Sunday Juan MD [address] [place] [id number] PCP - General Family Medicine 06/04/22 Jeromy Hall II, MD [address] [facility] [place] [address] Surgeon Otolaryngology 02/19/21 Cheyanne Osuna MD [address] [place] [address] Radiation Oncologist Radiation Oncology 01/18/24
--- OUTSIDE RECORDS SUMMARY | 2024-10-13 01:40 | XMS_ITS | Clinical Summary ---
Author Organization [facility] Address [address] [place] [address] Phone Care Team Providers Care Environmental Education Specialist Name Role Phone Kayode Andrade MD Primary Care Provider [phone] Allergies Active Allergy Reactions Criticality Noted Date [...] 1.2 mg by subcutaneous injection daily. 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 Gender Identity Not on file Sexual Orientation Not on file Occupation Industry Job Start Date Job End Date Not on file Not on file Not on file Not on file Last Filed Vital Signs Vital Sign Reading Time Taken Comments Blood Pressure 147/79 07/14/2023 8:10 AM PATCH SETTER Pulse 82 07/14/2023 8:10 AM PATCH SETTER Temperature 36.6 C (97.8 F) 07/14/2023 8:10 AM PATCH SETTER Respiratory Rate 16 07/14/2023 8:10 AM PATCH SETTER Oxygen Saturation 93% 07/14/2023 8:10 AM PATCH SETTER Inhaled Oxygen Concentration - - Weight 9.798 kg (21 lb 9.6 oz) 07/14/2023 4:54 A M PATCH SETTER Height 188 cm (6' 2 ) 07/12/2023 10:22 PM PATCH SETTER Body Mass Index 2.77 07/12/2023 10:22 PM PATCH SETTER Plan of Treatment Health Maintenance Due Date [...] 01/15/2018, 09/23/2017 Medical Devices Implanted Type Area Customer Field Representative Device Identifier Shelf Expiration Date Model / Serial / Lot Stem Fem Integral Por Std [id number] - [id number] Implanted:Qty : 1 on 01/04/2014 by Shahram Cabrera MD at [facility] Hip Right: Hip [employer] 10/22/2023 [id number] / / [id number] Head Fem Biolox Option 36mm 650-1057 - [id number] Implanted:Qty : 1 on 01/04/2014 by Shahram Cabrera MD at [facility] Hip Right: Hip [employer] 10/22/2023 [id number] / / [id number] Slv Biolox Delta Optn Type 1 650-1066 - [id number] Implanted:Qty : 1 on 01/04/2014 by Shahram Cabrera MD at [facility] Hip Right: Hip [employer] 12/22/2023 [id number] / / [id number] Stent Polaris Ultra [id number] - [id number] Implanted:Qty : 1 on 09/17/2016 by Say Wyman MD at [facility] Stent Left: Ureter [employer] [id number] 07/21/2019 [id number] / / [id number] Hip Mesh G7 Acetabular Shell 3 Hole 58mm Shell Size, G Liner Size [id number] Implanted:Qty : 1 on 01/04/2014 by Shahram Cabrera MD at [facility] Right: Hip [employer] 09/21/2023 [id number] / / [id number] Description:POROUS PLASMA, C EMENTLESS PROCESSED ON REQUISITION,[id number]. G7 Acetabular Liner Hi-Wall 36mm Head Size, G Liner Size [id number] Implanted:Qty : 1 on 01/04/2014 by Shahram Cabrera MD at [facility] Right: Hip [employer] 11/20/2017 [id number] / / [id number] Explanted Type Area Customer Field Representative Device Identifier Shelf Expiration Date Model / Serial / Lot Stent Contour [id number] - [id number] Implanted:Qty: 1 on 08/20/2016 by Say Wyman MD at [facility] Explanted:Qty: 1 on 09/17/2016 by Say Wyman MD at [facility] Stent Left: Ureter [employer]/MEDIA SPECIALIST [id number] 03/31/2019 [id number] / / [id number] Description:Pt has two left ureters, this historical implant was explanted, out of left ureter #1, and a new stent was placed in left ureter #2. Insurance MEDICARE PART A HOSPITAL ONLY [place] BENEFIT PLANS Advance Directives For more information, please contact: [phone] * Full Code (Latest Code Status on [...] 8:19 AM 01/04/2014 2:28 PM Care Teams Environmental Education Specialist Relationship Specialty Start Date End Date Kayode Andrade MD [address] [place] [phone] PCP - General Internal Medicine 02/27/12
--- OUTSIDE RECORDS SUMMARY | 2024-10-13 01:40 | XMS_ITS ---
Author Organization [facility] [place] Care Team Providers Care Dynamotor Repairer Name Role Phone Rafael JENNINGS MD, Jeromy Guido Unavailable [phone] Sunday Juan MD Primary Care Provider [phone] Cheyanne Osuna MD Unavailable [phone] Active Problems Problem Noted Date Diagnosed Date [...] of 6 cycles started Oncology Supportive Care Therapy Plan Plan Name Start Date Discontinue Date Treatment [...]
--- OUTSIDE RECORDS SUMMARY | 2024-10-13 01:40 | XMS_ITS | Clinical Summary ---
Author Organization 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 Gender Identity Not on file Sexual Orientation Not on file Obstetrics History Last Filed Vital Signs Vital Sign Reading Time Taken Comments Blood Pressure 167/86 04/18/2024 8:53 AM AGRICULTURAL EDUCATION TEACHER Pulse 108 04/18/2024 8:53 AM AGRICULTURAL EDUCATION TEACHER Temperature 36.8 C (98.2 F) 02/08/2024 11:31 AM CDT Respiratory Rate 18 12/01/2022 11:46 AM CDT Oxygen Saturation 95% 04/18/2024 8:53 AM AGRICULTURAL EDUCATION TEACHER Inhaled Oxygen Concentration - - Weight 94.3 kg (208 lb) 06/06/2024 4:16 PM AGRICULTURAL EDUCATION TEACHER Height 188 cm (6' 2 ) 06/06/2024 4:16 PM AGRICULTURAL EDUCATION TEACHER Body Mass Index 26.71 06/06/2024 4:16 PM AGRICULTURAL EDUCATION TEACHER Plan of Treatment Health Maintenance Due Date [...] exists Well Visit 65+ 2021 Influenza Vaccine (Season Ended) 2025 Zoster Vaccine Completed 01/15/2018, 09/23/2017 Abdominal Aortic Aneurysm (A AA) Screen Completed 04/03/2024, 10/22/2021, 07/01/2019, Additional history exists Medical Devices Explanted Type Area Hot Header Operator Device Identifier Shelf Expiration Date Model / [...] Kelvin Reis M.D. JA: DANIEL Report ID: [id number] Reading Location: [place] [address] Procedure Note Kelvin Reis MD - 10/23/2021 [...] Kelvin Reis M.D. JA: DANIEL Report ID: [id number] Reading Location: [place] [address] [place] [place]eses [place] IMG CT PROCEDURES Final Res ult * (ABNORMAL) Hemoglobin A1c (03/06/2019 7:24 AM CDT) Hemoglobin A1c % 6.9(H) 4.0 - 5.6 % [facility] Comment: ADA 2016 GUIDELINES: Initial Diagnostic Criteria HbA1c Result: Interpretation: <5.7% Normal 5.7-6.4% At risk for diabetes mellitus >=6.5% Consistent with diabetes mellitus Diabetes monitoring Target value (ADA Recommended) <7% 03/06/2019 7:24 AM CDT 03/06/2019 10:38 AM CDT Narrative Resulting Agency Comment CLI us Marcos Marquez DO LAB BLOOD [place]AB[place] [address], [facility] [phone] * (ABNORMAL) Comprehensive metabolic panel (02/15/2019 2:52 [...] 8:07 PM CDT Performed at: - [facility] [place] [id number] Radar Signal Processing Engineer: Brian Chavez PhD, Phone: [phone] Jacob Edward MD LAB BLOOD ORDERABLES nal Result Performing Organization Address City/State/[facility] Co de Phone Number [facility] - 01 from Last 3 Months or Most Recently Relevant to Health Maintenance Insurance [employer] [facility] [id number] [facility] [id number] Care Teams Tar Processing Technician Relationship Specialty Start Date End Date Sunday Juan MD [address] [place] [phone] PCP - General Family Medicine 06/04/22 Jeromy Hall II, MD [address] [place] [address] Surgeon Otolaryngology 02/19/21 Cheyanne Osuna MD [address] [place] [phone] Radiation Oncologist Radiation Oncology 01/18/24
[2024-10-13 12:04] VITALS: BP 113/62; PULSE 98; RESP 20; TEMP 36.2; O2SAT 98
[2024-10-13 12:05] VITALS: BMI 25.2
[2024-10-13] MEDS: LACTATED RINGERS 1,000 ML 150 ML IV CONT (12:16)
[2024-10-13 12:19] LABS: Glucose Point of Care 117 mg/dl (65-105)
--- NOTE | 2024-10-13 14:03 | P.PNAN_ITS ---
Anes - Initial Pre Proc Eval Procedure: Operation Date: 10/13/24 13:30 Proposed Procedures p Screening Colonoscopy - James Pederson MD Date/Time: 10/13/24 14:03 Surgeon: James Pederson MD Pre Op Diagnosis: screening Patient Data Age: 69 Gender: M Height: 1.88 m Weight: 89.4 kg Last Vital Signs Temp 36.2 C L 10/13/24 12:04 Pulse 98 10/13/24 12:04 Resp 20 10/13/24 12:04 BP 113/62 10/13/24 12:04 Pulse Ox 98 10/13/24 12:04 O2 Del Method Room Air 10/13/24 12:04 Allergies Allergy/AdvReac Type Severity Reaction Status Date / Time celecoxib Allergy Severe RASH Verified 10/13/24 12:03 ezetimibe Allergy Unknown RASH Verified 10/13/24 12:03 simvastatin Allergy Unknown RASH Verified 10/13/24 12:03 ibuprofen Allergy rash Verified 10/13/24 12:03 Home Medications ?Medication ?Instructions ?Recorded ?Confirmed ?Type levothyroxine 25 mcg tablet 25 mcg PO DAILY 02/09/22 10/13/24 History aspirin 81 mg tablet,delayed 81 mg PO DAILY 03/31/22 10/13/24 History release (Adult Low Dose Aspirin) pen needle, diabetic 31 gauge x #100 ea 08/03/24 08/03/24 Rx 5/16 blood sugar diagnostic (Accu-Chek #100 ea 08/17/24 Rx Guide test strips) dapagliflozin propanediol 10 mg 10 mg PO DAILY #90 tabs 08/17/24 10/13/24 Rx tablet (Farxiga) insulin glargine 100 unit/mL (3 20 unit (0.2 mL) subcut QHS #15 mL 08/17/24 10/13/24 Rx mL) subcutaneous pen (Lantus Solostar U-100 Insulin) rosuvastatin 20 mg tablet 20 mg PO DAILY #90 tabs 08/17/24 10/13/24 Rx glimepiride 2 mg tablet 4 mg (2 x 2 mg) PO BID #180 tabs 08/24/24 10/13/24 Rx metformin 500 mg tablet,extended 1,000 mg (2 x 500 mg) PO BID #360 10/02/24 10/13/24 Rx release 24 hr tabs semaglutide 1 mg/dose (4 mg/3 mL) 1 mg (0.75 mL) subcut WEEKLY #3 mL 10/02/24 10/13/24 Rx subcutaneous pen injector Laboratory Tests 10/13/24 12:09 POC Capillary Glucose 117 H mg/dl (65-105) Patient hx anesthesia problems: none Family hx anesthesia problems: none Results Review: All pre-operative results and documents have been reviewed as part of the pre-operative evaluation. 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 Hypothyroidism Hyperlipidemia Diabetes Surgical History Surgical History H/O repair of rotator cuff History of hip replacement Family History Family History Father Carcinoma of colon Mother ALS (amyotrophic lateral sclerosis) Social History Social History Smoking status: Never smoker Alcohol intake: never Substance use: never Substance use type: does not use Lack of Transportation: No Lack of Food: Never True Current Housing: I Have Housing Concerned About Future Housing: No Difficulty Paying Gas/Electric Bills: No Difficulty Paying for Meds: No Currently Unemployed: No Education: High School Diploma/GED Difficulty w/ Childcare or Family Care: No Living arrangements: with family Occupation/Education: occupation Additional occupation/education comments: [employer] Gender identity (if verbalized by the patient): Male Sexual Orientation (if Verbalized by the Patient): Straight or Heterosexual Anes - Eval Final PreProcedure Day of Procedure 10/13/24 14:03 Patient weight: normal Heart: regular rate and rhythm Lungs: clear to auscultation Airway: Mallampati scale class II Neurological: alert and oriented Last oral intake: >/= 8 hours ASA classification: III Emergent: no Anesthetic plan: proceed Anesthesia type and monitoring: general GIVS and standard monitoring Results Review: All pre-operative results and documents have been reviewed as part of the pre- operative evaluation. Informed Consent: The patient's anesthetic plan and its attendant risks and benefits were discussed with the patient/family/POA. Questions were solicited and answers provided to the satisfaction of the patient/family/POA.
--- NOTE | 2024-10-13 14:11 | PM.IMHP ---
H&P: HPI History of Present Illness Date/Time: 10/13/24 14:11 Chief Complaint: Screening colonoscopy Narrative: This is the patient's 2nd colonoscopy. There are no GI symptoms and there is no family history of colorectal cancer. 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 Remission 03/2024. Hypothyroidism Hyperlipidemia Diabetes Surgical History Surgical History H/O repair of rotator cuff History of hip replacement Family History Family History Father Carcinoma of colon Mother ALS (amyotrophic lateral sclerosis) Social History Social History Smoking status: Never smoker Alcohol intake: never Substance use: never Substance use type: does not use Lack of Transportation: No Lack of Food: Never True Current Housing: I Have Housing Concerned About Future Housing: No Difficulty Paying Gas/Electric Bills: No Difficulty Paying for Meds: No Currently Unemployed: No Education: High School Diploma/GED Difficulty w/ Childcare or Family Care: No Living arrangements: with family Occupation/Education: occupation Additional occupation/education comments: [employer] Gender identity (if verbalized by the patient): Male Sexual Orientation (if Verbalized by the Patient): Straight or Heterosexual Meds Home Medications and Allergies Home Medications ?Medication ?Instructions ?Recorded ?Confirmed ?Type levothyroxine 25 mcg tablet 25 mcg PO DAILY 02/09/22 10/13/24 History aspirin 81 mg tablet,delayed 81 mg PO DAILY 03/31/22 10/13/24 History release (Adult Low Dose Aspirin) pen needle, diabetic 31 gauge x #100 ea 08/03/24 08/03/24 Rx 5/16 blood sugar diagnostic (Accu-Chek #100 ea 08/17/24 Rx Guide test strips) dapagliflozin propanediol 10 mg 10 mg PO DAILY #90 tabs 08/17/24 10/13/24 Rx tablet (Farxiga) insulin glargine 100 unit/mL (3 20 unit (0.2 mL) subcut QHS #15 mL 08/17/24 10/13/24 Rx mL) subcutaneous pen (Lantus Solostar U-100 Insulin) rosuvastatin 20 mg tablet 20 mg PO DAILY #90 tabs 08/17/24 10/13/24 Rx glimepiride 2 mg tablet 4 mg (2 x 2 mg) PO BID #180 tabs 08/24/24 10/13/24 Rx metformin 500 mg tablet,extended 1,000 mg (2 x 500 mg) PO BID #360 10/02/24 10/13/24 Rx release 24 hr tabs semaglutide 1 mg/dose (4 mg/3 mL) 1 mg (0.75 mL) subcut WEEKLY #3 mL 10/02/24 10/13/24 Rx subcutaneous pen injector Allergies Allergy/AdvReac Type Severity Reaction Status Date / Time celecoxib Allergy Severe RASH Verified 10/13/24 12:03 ezetimibe Allergy Unknown RASH Verified 10/13/24 12:03 simvastatin Allergy Unknown RASH Verified 10/13/24 12:03 ibuprofen Allergy rash Verified 10/13/24 12:03 Vital Signs Vital Signs - 24 hr 10/13/24 12:04 Temperature 97.2 F L Pulse Rate 98 Respiratory Rate 20 Blood Pressure 113/62 Pulse Oximetry 98 Oxygen Delivery Room Air Exam Const: General: cooperative and healthy appearing Resp: Effort & Inspection: normal respiratory effort and able to speak in complete sentences Auscultation: clear to auscultation bilaterally Cardio: Rate: regular rate Rhythm: regular rhythm GI: Inspection: normal to inspection GI Palp: No No hepatosplenomegaly present Auscultation: normal bowel sounds Rectal Exam: deferred Skin: General skin exam: normal color Psych: Appearance: grossly normal Mental Status: mental status grossly normal Assessment and Plan Assessment and plan (1) Encounter for screening colonoscopy: Code(s): Z12.11 - Encounter for screening for malignant neoplasm of colon Status: Acute Assessment and Plan: The patient is deemed a good candidate for the procedure. Consent signed. Will proceed.
[2024-10-13 14:32] VITALS: BP 94/60; PULSE 81; RESP 18; O2SAT 96
[2024-10-13 14:42] VITALS: BP 97/63; PULSE 78; RESP 19; O2SAT 94
[2024-10-13 14:44] LABS: Glucose Point of Care 91 mg/dl (65-105)
[2024-10-13 14:52] VITALS: BP 113/72; PULSE 79; RESP 19; O2SAT 97
== END 2024-10-13 15:13 | disposition home or self-care (01) ==
PROVIDERS: PCP Physician Assistant Medical; Referring Provider Physician Assistant Medical; Visit Provider Internal Medicine Gastroenterology
PROC: 0DJD8ZZ Inspection of Lower Intestinal Tract, Via Natural or Artificial Opening Endoscopic (ICD-10-PCS; CPT 45378; principal; 2024-10-13 13:30)
DX: Z12.11 Encounter for screening for malignant neoplasm of colon (principal); E78.5 Hyperlipidemia, unspecified; E03.9 Hypothyroidism, unspecified; E11.9 Type 2 diabetes mellitus without complications; Z79.82 Long term (current) use of aspirin; Z79.84 Long term (current) use of oral hypoglycemic drugs; Z79.4 Long term (current) use of insulin; Z79.85 Long-term (current) use of injectable non-insulin antidiabetic drugs; Z98.890 Other specified postprocedural states; Z92.3 Personal history of irradiation; Z92.21 Personal history of antineoplastic chemotherapy; Z80.0 Family history of malignant neoplasm of digestive organs; Z85.818 Personal history of malignant neoplasm of other sites of lip, oral cavity, and pharynx
CPT/HCPCS: G0105; 82948; J2704; J7120